=== PATIENT | male | born 1970 | race African-American/Black ===

== ENCOUNTER 2018-06-28 16:22 | Inpatient (IN) | payer MEDICAID ==
[2018-06-28] VITALS (20 sets, daily range): BP systolic 119–161; BP diastolic 66–104
[~2018-06-28] VITALS: Ht 177.8 cm; Wt 122.0 kg
[2018-06-28] MEDS ORDERED: SODIUM CHLORIDE 0.9% 1,000 ML IV ONE (16:51)
[2018-06-28] MEDS ORDERED: HYDRALAZINE 20MG/ML VIAL IV ONE (17:00)
[2018-06-28] MEDS ORDERED: NICARDIPINE 100 MG in SODIUM CHLORIDE 0.9% 60 ML IV STA (17:33)
[2018-06-28] MEDS ORDERED: NICARDIPINE 40MG/200ML PREMIX 200 ML IV SCH (17:45)
[2018-06-28] MEDS ORDERED: NICARDIPINE 40MG/200ML PREMIX 200 ML IV ONE (17:46)
[2018-06-28 17:51] LABS: BASOPHILS % 0.2 % (0.0-2.0); EOSINOPHILS % 0.5 % (0.0-5.0); HEMOGLOBIN. 19.4 g/dL (14.0-18.0); LYMPHOCYTES % 15.3 % (20.0-50.0); MEAN CORPUSCULAR HEMOGLOBIN 27.1 pg (28.0-32.0); MEAN CORPUSCULAR VOLUME 86.2 fL (80.0-94.0); MEAN PLATELET VOLUME 9.2 fl (7.4-10.4); MONOCYTES % 9.6 % (2.0-8.0); NEUTROPHILS % 74.4 % (40.0-76.0); PLATELET 199 x1000/uL (130-400); RED BLOOD CELL COUNT 7.16 mill/uL (4.7-6.1); RED CELL DISTRIBUTION WIDTH 15.8 % (11.6-14.6)
[2018-06-28 17:53] LABS: HEMATOCRIT. 61.7 % (42.0-52.0)
[2018-06-28 17:55] LABS: CHLORIDE 101 mEq/L (98-107); INR 1.3; PARTIAL THROMBOPLASTIN TIME 32.1 sec (23.4-31.0); PROTHROMBIN TIME 12.7 sec (9.1-11.1)
[2018-06-28 18:00] LABS: ETHANOL BLOOD < 10 mg/dL
[2018-06-28] MEDS ORDERED: MANNITOL 20% (20GM/100ML) BAG 500ML PREMIX IV ONE (18:00)
[2018-06-28] MEDS ORDERED: MANNITOL 12.5G (25%) VIAL 50ML IV ONE (18:00)
[2018-06-28] MEDS ORDERED: DEXAMETHASONE 10 MG/ML VIAL IV ONE (18:00)
[2018-06-28] MEDS ORDERED: DEXT 5%/0.45% NACL 1000ML 1,000 ML IV SCH (18:09)
[2018-06-28] MEDS ORDERED: MANNITOL 20% 250 ML IV ONE (18:15)
[2018-06-28 18:36] LABS: CLARITY URINE CLEAR (CLEAR); COLOR URINE YELLOW (YELLOW); KETONES URINE 1+ (NEGATIVE); LEUKOCYTE ESTERASE URINE NEGATIVE (NEGATIVE); NITRITE URINE NEGATIVE (NEGATIVE); OCCULT BLOOD URINE NEGATIVE (NEGATIVE); PROTEIN URINE 1+ (NEGATIVE); SPECIFIC GRAVITY URINE 1.023 (1.005-1.030)
[2018-06-28 18:53] LABS: *AMPHETAMINES SCREEN URINE PRESUMTIVE POSITIVE (NEGATIVE)
[2018-06-28 18:54] LABS: *BARBITURATES SCREEN URINE NEGATIVE (NEGATIVE); *BENZODIAZEPINES SCREEN URINE NEGATIVE (NEGATIVE); *COCAINE SCREEN URINE NEGATIVE (NEGATIVE); CANNABINOID URINE SCREEN NEGATIVE (NEGATIVE); METHADONE URINE SCREEN NEGATIVE (NEGATIVE); OPIATES URINE SCREEN NEGATIVE (NEGATIVE); PHENCYCLIDINE URINE SCREEN NEGATIVE (NEGATIVE)
[2018-06-28] MEDS ORDERED: NICARDIPINE 100 MG in SODIUM CHLORIDE 0.9% 60 ML IV PRN (19:00)
[2018-06-28] MEDS: NICARDIPINE 100 MG in SODIUM CHLORIDE 0.9% 60 ML IV PRN (20:01)
[2018-06-28] MEDS: DEXT 5%/LACTATED RINGERS 1,000 ML IV SCH (20:12)
[2018-06-28] MEDS: DEXAMETHASONE 4MG/ML 1ML VIAL IV SCH (20:27)
[2018-06-28] MEDS: FAMOTIDINE 20MG/2ML VIAL IV SCH (20:27)
[2018-06-28] MEDS: LEVETIRACETAM 500MG in SODIUM CHLORIDE 0.9% 100ML IV SCH (20:28)
[2018-06-28] MEDS: PIPERACILLIN/TAZ 3.375G PREMIX 50 ML IV SCH (22:19)
[2018-06-28 23:15] LABS: BG BASE EXCESS 0.7 mmol/L (-2.0-2.0); BG CARBOXYHEMOGLOBIN 0.6 % (0.5-1.5); BG DEOXYHEMOGLOBIN 4.6 % (0.0-5.0); BG FRACTION INSPIRED OXYGEN 32; BG METHEMOGLOBIN 0.4 % (0.0-1.5); BG OXYGEN SATURATION 95.4 % (92.0-98.5); BG OXYHEMOGLOBIN 94.4 % (94.0-97.0); BG PCO2 43.7 mmHg (35.0-45.0); BG PH 7.392 (7.350-7.450); BG SAMPLE SITE RIGHT BRACHIAL; BG TOTAL HEMOGLOBIN 18.8 g/dL (12.0-18.0); BG VENT MODE NASAL CANNULA
[2018-06-28] MEDS: MANNITOL 20% 100 ML IV SCH (23:15)
[2018-06-29] VITALS (96 sets, daily range): BP systolic 111–175; BP diastolic 54–111
[2018-06-29] MEDS: NICARDIPINE 100 MG in SODIUM CHLORIDE 0.9% 60 ML IV PRN ×3 (02:10→18:00)
[2018-06-29] MEDS: DEXAMETHASONE 4MG/ML 1ML VIAL IV SCH ×4 (02:10→21:06)
[2018-06-29] MEDS: PIPERACILLIN/TAZ 3.375G PREMIX 50 ML IV SCH ×4 (03:14→21:06)
[2018-06-29] MEDS: MANNITOL 20% 100 ML IV SCH ×3 (05:51→17:50)
[2018-06-29 06:42] LABS: HEMATOCRIT 55.7 % (42.0-52.0); HEMOGLOBIN 18.2 g/dL (14.0-18.0); MEAN CORPUSCULAR HEMOGLOBIN 27.4 pg (28.0-32.0); MEAN CORPUSCULAR VOLUME 84.2 fL (80.0-94.0); PLATELET 234 x1000/uL (130-400); RED BLOOD CELL COUNT 6.62 mill/uL (4.7-6.1); RED CELL DISTRIBUTION WIDTH 15.2 % (11.6-14.6)
[2018-06-29 06:45] LABS: CHLORIDE 102 mEq/L (98-107)
[2018-06-29] MEDS ORDERED: LEVETIRACETAM 500MG PREMIX 100 ML IV SCH (09:00)
[2018-06-29] MEDS: LEVETIRACETAM 500MG in SODIUM CHLORIDE 0.9% 100ML IV SCH ×2 (09:04→21:06)
[2018-06-29] MEDS: FAMOTIDINE 20MG/2ML VIAL IV SCH ×2 (09:04→21:06)
[2018-06-29] MEDS: DEXT 5%/LACTATED RINGERS 1,000 ML IV SCH (09:05)
[2018-06-29] MEDS: LABETALOL HCL 20MG/4ML CARPUJECT IV PRN (12:59)
[2018-06-29] MEDS ORDERED: SODIUM CHLORIDE 0.9% 1,000 ML IV SCH (15:45)
[2018-06-29] MEDS ORDERED: METOPROLOL TARTRATE 25MG TABLET JT PRN (17:15)
[2018-06-29] MEDS: MORPHINE SULFATE 4 MG/ML CPJ (NOT FOR IM USE) IV PRN (21:07)
[2018-06-30] VITALS (93 sets, daily range): BP systolic 106–163; BP diastolic 20–100
[2018-06-30] MEDS: NICARDIPINE 100 MG in SODIUM CHLORIDE 0.9% 60 ML IV PRN ×5 (00:36→23:07)
[2018-06-30] MEDS ORDERED: SODIUM CHLORIDE 0.9% 1,000 ML IV SCH (02:00)
[2018-06-30] MEDS: DEXAMETHASONE 4MG/ML 1ML VIAL IV SCH ×4 (03:12→20:36)
[2018-06-30] MEDS: PIPERACILLIN/TAZ 3.375G PREMIX 50 ML IV SCH ×4 (03:12→21:12)
[2018-06-30 05:31] LABS: HEMATOCRIT 54.5 % (42.0-52.0); HEMOGLOBIN 17.3 g/dL (14.0-18.0); MEAN CORPUSCULAR VOLUME 85.1 fL (80.0-94.0); PLATELET 231 x1000/uL (130-400); RED BLOOD CELL COUNT 6.41 mill/uL (4.7-6.1); RED CELL DISTRIBUTION WIDTH 15.3 % (11.6-14.6)
[2018-06-30 06:08] LABS: CHLORIDE 105 mEq/L (98-107)
[2018-06-30] MEDS ORDERED: SODIUM CHLORIDE 3% 500 ML IV SCH (09:00)
[2018-06-30] MEDS: LEVETIRACETAM 500MG in SODIUM CHLORIDE 0.9% 100ML IV SCH ×2 (09:30→20:36)
[2018-06-30] MEDS: FAMOTIDINE 20MG/2ML VIAL IV SCH ×2 (09:30→20:36)
[2018-06-30] MEDS: SODIUM CHLORIDE 3% 500 ML IV SCH ×2 (09:32→21:13)
[2018-06-30] MEDS: MORPHINE SULFATE 4 MG/ML CPJ (NOT FOR IM USE) IV PRN ×2 (20:24→21:10)
[2018-07-01] VITALS (83 sets, daily range): BP systolic 126–171; BP diastolic 18–102
[2018-07-01] MEDS: PIPERACILLIN/TAZ 3.375G PREMIX 50 ML IV SCH ×4 (03:04→21:15)
[2018-07-01] MEDS: DEXAMETHASONE 4MG/ML 1ML VIAL IV SCH ×4 (03:04→20:37)
[2018-07-01] MEDS: MORPHINE SULFATE 4 MG/ML CPJ (NOT FOR IM USE) IV PRN (03:32)
[2018-07-01] MEDS: NICARDIPINE 100 MG in SODIUM CHLORIDE 0.9% 60 ML IV PRN ×3 (06:41→20:57)
[2018-07-01 06:42] LABS: HEMATOCRIT. 54.2 % (42.0-52.0); HEMOGLOBIN. 17.1 g/dL (14.0-18.0); MEAN CORPUSCULAR HEMOGLOBIN 26.8 pg (28.0-32.0); RED BLOOD CELL COUNT 6.38 mill/uL (4.7-6.1); RED CELL DISTRIBUTION WIDTH 15.5 % (11.6-14.6)
[2018-07-01 06:43] LABS: CHLORIDE 110 mEq/L (98-107)
[2018-07-01 06:53] LABS: LDL CHOLESTEROL 76 mg/dL (5-100)
[2018-07-01 06:55] LABS: HDL CHOLESTEROL 38 mg/dL (40-59)
[2018-07-01] MEDS: FAMOTIDINE 20MG/2ML VIAL IV SCH ×2 (09:50→20:37)
[2018-07-01] MEDS: LEVETIRACETAM 500MG in SODIUM CHLORIDE 0.9% 100ML IV SCH ×2 (09:51→20:37)
[2018-07-01 10:34] LABS: PLATELET ESTIMATE NORMAL
[2018-07-01 10:36] LABS: MEAN PLATELET VOLUME 9.3 fl (7.4-10.4)
[2018-07-01 10:37] LABS: PLATELET 227 x1000/uL (130-400)
[2018-07-01] MEDS: LABETALOL HCL 20MG/4ML CARPUJECT IV PRN (10:58)
[2018-07-01] MEDS: SODIUM CHLORIDE 0.9% 1,000 ML IV SCH (13:40)
[2018-07-02] VITALS (89 sets, daily range): BP systolic 116–204; BP diastolic 46–167
[2018-07-02] MEDS: DEXAMETHASONE 4MG/ML 1ML VIAL IV SCH ×4 (03:10→20:44)
[2018-07-02] MEDS: PIPERACILLIN/TAZ 3.375G PREMIX 50 ML IV SCH ×4 (03:10→22:15)
[2018-07-02] MEDS: NICARDIPINE 100 MG in SODIUM CHLORIDE 0.9% 60 ML IV PRN ×3 (03:42→17:40)
[2018-07-02] MEDS: SODIUM CHLORIDE 0.9% 1,000 ML IV SCH ×2 (05:34→22:15)
[2018-07-02] MEDS ORDERED: MORPHINE SULFATE 4 MG/ML CPJ (NOT FOR IM USE) IV PRN (10:00)
[2018-07-02] MEDS: MORPHINE SULFATE 4 MG/ML CPJ (NOT FOR IM USE) IV PRN (10:09)
[2018-07-02] MEDS: LEVETIRACETAM 500MG in SODIUM CHLORIDE 0.9% 100ML IV SCH ×2 (10:13→20:44)
[2018-07-02] MEDS: FAMOTIDINE 20MG/2ML VIAL IV SCH ×2 (10:13→20:44)
[2018-07-02 13:10] LABS: A/G RATIO 0.8 (0.7-1.7); ALBUMIN 3.5 g/dL (2.9-4.4); ALPHA-1-GLOBULIN 0.3 g/dL (0.0-0.4); ALPHA-2-GLOBULIN 0.9 g/dL (0.4-1.0); BETA GLOBULIN 1.4 g/dL (0.7-1.3); GAMMA GLOBULINS 1.9 g/dL (0.4-1.8); GLOBULIN TOTAL 4.5 g/dL (2.2-3.9); M-SPIKE Not Observed g/dL (Not Observed)
[2018-07-03] VITALS (98 sets, daily range): BP systolic 109–172; BP diastolic 58–132
[2018-07-03] MEDS: NICARDIPINE 100 MG in SODIUM CHLORIDE 0.9% 60 ML IV PRN ×2 (00:56→09:28)
[2018-07-03] MEDS: LABETALOL HCL 20MG/4ML CARPUJECT IV PRN (01:57)
[2018-07-03] MEDS: DEXAMETHASONE 4MG/ML 1ML VIAL IV SCH ×4 (03:21→19:56)
[2018-07-03] MEDS: PIPERACILLIN/TAZ 3.375G PREMIX 50 ML IV SCH ×4 (03:21→22:02)
[2018-07-03 05:21] LABS: HEMATOCRIT. 54.8 % (42.0-52.0); HEMOGLOBIN. 17.7 g/dL (14.0-18.0); MEAN CORPUSCULAR HEMOGLOBIN 27.3 pg (28.0-32.0); MEAN CORPUSCULAR VOLUME 84.4 fL (80.0-94.0); MEAN PLATELET VOLUME 9.1 fl (7.4-10.4); PLATELET 230 x1000/uL (130-400); RED CELL DISTRIBUTION WIDTH 15.4 % (11.6-14.6)
[2018-07-03 05:27] LABS: CHLORIDE 102 mEq/L (98-107)
[2018-07-03] MEDS: MORPHINE SULFATE 4 MG/ML CPJ (NOT FOR IM USE) IV PRN (07:03)
[2018-07-03] MEDS ORDERED: MORPHINE SULFATE 4 MG/ML CPJ (NOT FOR IM USE) IV NR (07:15)
[2018-07-03] MEDS ORDERED: HYDROMORPHONE HCL/PF 2MG/ML CPJ IV NR (08:30)
[2018-07-03] MEDS ORDERED: RISPERIDONE 0.5MG TABLET PO SCH (09:00)
[2018-07-03] MEDS: FAMOTIDINE 20MG/2ML VIAL IV SCH ×2 (09:35→19:56)
[2018-07-03] MEDS: LEVETIRACETAM 500MG in SODIUM CHLORIDE 0.9% 100ML IV SCH ×2 (09:36→20:22)
[2018-07-03] MEDS: RISPERIDONE 1MG TABLET PO SCH ×2 (10:30→19:56)
[2018-07-03 14:01] LABS: PLATELET ESTIMATE NORMAL
[2018-07-03] MEDS: HYDROMORPHONE HCL/PF 2MG/ML CPJ IV PRN ×2 (14:04→19:57)
[2018-07-03] MEDS: LOSARTAN POTASSIUM 50 MG TABLET PO SCH (20:23)
[2018-07-03] MEDS: SODIUM CHLORIDE 0.9% 1,000 ML IV SCH (20:23)
[2018-07-04] VITALS (51 sets, daily range): BP systolic 104–158; BP diastolic 70–135
[2018-07-04] MEDS: HYDROMORPHONE HCL/PF 2MG/ML CPJ IV PRN (00:54)
[2018-07-04] MEDS: LABETALOL HCL 20MG/4ML CARPUJECT IV PRN (02:13)
[2018-07-04] MEDS: PIPERACILLIN/TAZ 3.375G PREMIX 50 ML IV SCH ×4 (03:07→21:20)
[2018-07-04] MEDS: DEXAMETHASONE 4MG/ML 1ML VIAL IV SCH ×4 (03:07→21:20)
[2018-07-04 06:05] LABS: HEMATOCRIT. 53.3 % (42.0-52.0); HEMOGLOBIN. 16.8 g/dL (14.0-18.0); MEAN CORPUSCULAR HEMOGLOBIN 26.9 pg (28.0-32.0); MEAN CORPUSCULAR VOLUME 85.1 fL (80.0-94.0); MEAN PLATELET VOLUME 9.3 fl (7.4-10.4); PLATELET 211 x1000/uL (130-400); RED BLOOD CELL COUNT 6.27 mill/uL (4.7-6.1); RED CELL DISTRIBUTION WIDTH 14.7 % (11.6-14.6)
[2018-07-04 07:23] LABS: CHLORIDE 101 mEq/L (98-107)
[2018-07-04] MEDS: LOSARTAN POTASSIUM 50 MG TABLET PO SCH ×2 (08:06→21:21)
[2018-07-04] MEDS: RISPERIDONE 1MG TABLET PO SCH ×2 (08:06→21:21)
[2018-07-04] MEDS: FAMOTIDINE 20MG/2ML VIAL IV SCH ×2 (08:43→21:23)
[2018-07-04] MEDS: LEVETIRACETAM 500MG in SODIUM CHLORIDE 0.9% 100ML IV SCH (09:29)
[2018-07-04 11:04] LABS: PLATELET ESTIMATE NORMAL
[2018-07-04] MEDS: SODIUM CHLORIDE 0.9% 1,000 ML IV SCH (14:08)
[2018-07-04] MEDS: LEVETIRACETAM 500MG TABLET PO SCH (17:24)
[2018-07-05] VITALS: BP 134/88
[2018-07-05] MEDS: DEXAMETHASONE 4MG/ML 1ML VIAL IV SCH ×4 (03:00→21:06)
[2018-07-05 04:00] VITALS: BP 147/90
[2018-07-05] MEDS: LEVETIRACETAM 500MG TABLET PO SCH ×2 (06:34→18:00)
[2018-07-05] MEDS: PIPERACILLIN/TAZ 3.375G PREMIX 50 ML IV SCH ×4 (06:34→23:39)
[2018-07-05 08:00] VITALS: BP 160/103
[2018-07-05] MEDS: LOSARTAN POTASSIUM 50 MG TABLET PO SCH ×2 (08:14→21:06)
[2018-07-05] MEDS: RISPERIDONE 1MG TABLET PO SCH ×2 (08:14→21:06)
[2018-07-05] MEDS: FAMOTIDINE 20MG/2ML VIAL IV SCH ×2 (08:14→21:06)
[2018-07-05 11:01] LABS: HEMATOCRIT. 54.3 % (42.0-52.0); HEMOGLOBIN. 17.2 g/dL (14.0-18.0); MEAN CORPUSCULAR HEMOGLOBIN 26.8 pg (28.0-32.0); MEAN CORPUSCULAR VOLUME 84.8 fL (80.0-94.0); MEAN PLATELET VOLUME 8.8 fl (7.4-10.4); PLATELET 178 x1000/uL (130-400); RED CELL DISTRIBUTION WIDTH 14.8 % (11.6-14.6)
[2018-07-05 11:11] LABS: CHLORIDE 97 mEq/L (98-107)
[2018-07-05 12:00] VITALS: BP 144/92
[2018-07-05 14:16] LABS: PLATELET ESTIMATE NORMAL
[2018-07-05] MEDS: HALOPERIDOL LACTATE 5MG/ML VIAL IM PRN (14:22)
[2018-07-05 16:00] VITALS: BP 140/98
[2018-07-05 20:00] VITALS: BP_SYST 131; BP_SYST 136; BP_DIAS 86; BP_DIAS 97
[2018-07-06] MEDS: DEXAMETHASONE 4MG/ML 1ML VIAL IV SCH ×4 (03:00→21:14)
[2018-07-06 04:00] VITALS: BP 136/88
[2018-07-06] MEDS: LEVETIRACETAM 500MG TABLET PO SCH ×2 (06:27→17:00)
[2018-07-06 08:00] VITALS: BP 162/105
[2018-07-06 09:05] LABS: BASOPHILS % 0.3 % (0.0-2.0); HEMATOCRIT. 57.9 % (42.0-52.0); HEMOGLOBIN. 18.5 g/dL (14.0-18.0); LYMPHOCYTES % 7.3 % (20.0-50.0); MEAN CORPUSCULAR HEMOGLOBIN 27.1 pg (28.0-32.0); MEAN CORPUSCULAR VOLUME 84.8 fL (80.0-94.0); MONOCYTES % 4.8 % (2.0-8.0); NEUTROPHILS % 87.6 % (40.0-76.0); PLATELET 188 x1000/uL (130-400); RED BLOOD CELL COUNT 6.83 mill/uL (4.7-6.1); RED CELL DISTRIBUTION WIDTH 14.9 % (11.6-14.6)
[2018-07-06] MEDS: FAMOTIDINE 20MG/2ML VIAL IV SCH ×2 (09:06→21:14)
[2018-07-06] MEDS: LOSARTAN POTASSIUM 50 MG TABLET PO SCH ×2 (09:07→21:14)
[2018-07-06] MEDS: RISPERIDONE 1MG TABLET PO SCH ×2 (09:07→21:14)
[2018-07-06 09:12] LABS: CHLORIDE 98 mEq/L (98-107)
[2018-07-06 12:00] VITALS: BP 134/82
[2018-07-06] MEDS: HALOPERIDOL LACTATE 5MG/ML VIAL IM PRN (14:42)
[2018-07-06 16:00] VITALS: BP 140/87
[2018-07-06] MEDS ORDERED: LORAZEPAM 2MG/ML CPJ IV PRN (19:30)
[2018-07-06] MEDS ORDERED: FUROSEMIDE 40MG/4ML VIAL IVP NR (19:30)
[2018-07-06 20:00] VITALS: BP 139/84
[2018-07-07] VITALS (8 sets, daily range): BP systolic 94–145; BP diastolic 57–94
[2018-07-07] MEDS: DEXAMETHASONE 4MG/ML 1ML VIAL IV SCH ×4 (03:39→21:23)
[2018-07-07] MEDS: LEVETIRACETAM 500MG TABLET PO SCH ×2 (06:11→18:46)
[2018-07-07] MEDS: RISPERIDONE 1MG TABLET PO SCH ×2 (09:23→21:00)
[2018-07-07] MEDS: LOSARTAN POTASSIUM 50 MG TABLET PO SCH ×2 (09:23→21:00)
[2018-07-07] MEDS: FAMOTIDINE 20MG/2ML VIAL IV SCH (09:27)
[2018-07-07] MEDS ORDERED: MAGNESIUM HYDROXIDE 400MG/5ML 30ML UDC PO NR (20:00)
[2018-07-07] MEDS ORDERED: FAMOTIDINE 20MG TABLET PO SCH (21:00)
[2018-07-08 04:00] VITALS: BP 139/54
[2018-07-08] MEDS: DEXAMETHASONE 4MG/ML 1ML VIAL IV SCH (04:03)
[2018-07-08] MEDS: LEVETIRACETAM 500MG TABLET PO SCH (06:00)
[2018-07-08 08:00] VITALS: BP 124/91
== END 2018-07-08 09:15 | DRG 44 ==
LOC: ER 16:22 → MICUNO 18:07 → EDBEDREQ 18:16 → ENRESERV 18:19 → 5WST 07-04 17:51
PROVIDERS: ADMIT Ophthalmology; ATTEND Ophthalmology
PROC: 4A00X4Z Measurement of Central Nervous Electrical Activity, External Approach (ICD-10-PCS; principal; 2018-06-29)
DX: I61.1 Nontraumatic intracerebral hemorrhage in hemisphere, cortical (principal); G93.41 Metabolic encephalopathy; D75.1 Secondary polycythemia; E66.01 Morbid (severe) obesity due to excess calories; G81.91 Hemiplegia, unspecified affecting right dominant side; G90.8 Other disorders of autonomic nervous system; R47.01 Aphasia; I10 Essential (primary) hypertension; I87.2 Venous insufficiency (chronic) (peripheral); E86.0 Dehydration; F15.10 Other stimulant abuse, uncomplicated; D72.829 Elevated white blood cell count, unspecified; X58.XXXA Exposure to other specified factors, initial encounter; W19.XXXA Unspecified fall, initial encounter; Y93.89 Activity, other specified; Z78.1 Physical restraint status; Y92.89 Other specified places as the place of occurrence of the external cause; Z68.38 Body mass index [BMI] 38.0-38.9, adult; Y99.8 Other external cause status
CPT/HCPCS: 36415; 36600; 70496; 71045; 72170; 73590; 73610; 80048; 80061; 80305; 82375; 82668; 82805; 82962; 83880; 84155; 84165; 84295; 84484; 85027; 92610; 93005; 93970; 96374; 96375; 97116; 97162; 97166; 97530; 97535; 99291; G0482; J0360; J1100; J1170; J1630; J1940; J1953; J2060; J2270; J2543; J3490; J7030; J7050; A4315

== ENCOUNTER 2018-07-08 13:15 | Inpatient (IN) | payer MEDICAID ==
[~2018-07-08] VITALS: Ht 185.4 cm; Wt 108.9 kg
[2018-07-08] MEDS ORDERED: LORAZEPAM 1MG TABLET PO ONE (14:00)
[2018-07-08] MEDS ORDERED: QUETIAPINE FUMARATE 100MG TABLET PO ONE (15:30)
[2018-07-08 18:45] LABS: BASOPHILS % 0.3 % (0.0-2.0); EOSINOPHILS % 0.7 % (0.0-5.0); HEMATOCRIT. 59.6 % (42.0-52.0); LYMPHOCYTES % 10.5 % (20.0-50.0); MEAN CORPUSCULAR HEMOGLOBIN 26.8 pg (28.0-32.0); MEAN CORPUSCULAR VOLUME 83.9 fL (80.0-94.0); MEAN PLATELET VOLUME 8.9 fl (7.4-10.4); NEUTROPHILS % 77.5 % (40.0-76.0); PLATELET 201 x1000/uL (130-400); RED BLOOD CELL COUNT 7.11 mill/uL (4.7-6.1); RED CELL DISTRIBUTION WIDTH 14.9 % (11.6-14.6)
[2018-07-08 18:48] LABS: CHLORIDE 98 mEq/L (98-107)
[2018-07-08] MEDS ORDERED: LEVETIRACETAM 500MG PREMIX 100 ML IV ONE (19:30)
[2018-07-08 19:45] LABS: INR 1.3; PARTIAL THROMBOPLASTIN TIME 26.8 sec (23.4-31.0); PROTHROMBIN TIME 13.1 sec (9.1-11.1)
[2018-07-08] MEDS ORDERED: MORPHINE SULFATE 4 MG/ML CPJ (NOT FOR IM USE) IV PRN (20:30)
[2018-07-08] MEDS ORDERED: NICARDIPINE 100 MG in SODIUM CHLORIDE 0.9% 60 ML IV PRN ×2 (20:30→23:15)
[2018-07-08] MEDS ORDERED: DEXAMETHASONE 10 MG/ML VIAL IV ONE (20:30)
[2018-07-08 23:00] VITALS: BP_SYST 116; BP_SYST 127; BP_DIAS 75; BP_DIAS 92
[2018-07-08 23:15] VITALS: BP 110/66
[2018-07-08] MEDS ORDERED: ACETAMINOPHEN 650MG SUPP PR PRN (23:15)
[2018-07-08] MEDS ORDERED: HALOPERIDOL 1MG TABLET PO PRN (23:15)
[2018-07-08] MEDS: MANNITOL 20% (20GM/100ML) BAG 500ML PREMIX IV NR ×2 (23:29→23:44)
[2018-07-08 23:30] VITALS: BP 109/71
[2018-07-08] MEDS ORDERED: DEXT 5%/LACTATED RINGERS 1,000 ML IV SCH (23:30)
[2018-07-08 23:45] VITALS: BP 106/81
[2018-07-09] VITALS (35 sets, daily range): BP systolic 94–137; BP diastolic 54–92
[2018-07-09] MEDS ORDERED: CEFTRIAXONE 1 G PREMIX 50 ML IV SCH (01:00)
[2018-07-09] MEDS ORDERED: DEXT 5%/0.45% NACL KCL 20MEQ/L 1,000 ML IV SCH (01:00)
[2018-07-09] MEDS: DEXAMETHASONE 4MG/ML 1ML VIAL IV SCH ×3 (04:01→21:04)
[2018-07-09] MEDS: CEFTRIAXONE 1 G PREMIX 50 ML IV SCH (04:02)
[2018-07-09] MEDS ORDERED: DEXT 5%/LACTATED RINGERS 1,000 ML IV SCH (04:30)
[2018-07-09] MEDS ORDERED: LEVETIRACETAM 500MG PREMIX 100 ML IV SCH (09:00)
[2018-07-09] MEDS: LEVETIRACETAM 500MG in SODIUM CHLORIDE 0.9% 100ML IV SCH ×2 (09:25→22:23)
[2018-07-09] MEDS: FAMOTIDINE 20MG/2ML VIAL IV SCH ×2 (09:26→21:03)
[2018-07-09] MEDS: METOPROLOL TARTRATE 50MG TABLET PO SCH ×2 (10:45→21:06)
[2018-07-09] MEDS: LOSARTAN POTASSIUM 50 MG TABLET PO SCH (10:46)
[2018-07-09 12:01] LABS: BASOPHILS % 0.1 % (0.0-2.0); EOSINOPHILS % 0.1 % (0.0-5.0); HEMOGLOBIN. 20.8 g/dL (14.0-18.0); LYMPHOCYTES % 7.5 % (20.0-50.0); MEAN CORPUSCULAR HEMOGLOBIN 26.9 pg (28.0-32.0); MEAN PLATELET VOLUME 9.1 fl (7.4-10.4); MONOCYTES % 4.1 % (2.0-8.0); NEUTROPHILS % 88.2 % (40.0-76.0); PLATELET 221 x1000/uL (130-400); RED BLOOD CELL COUNT 7.75 mill/uL (4.7-6.1); RED CELL DISTRIBUTION WIDTH 15.1 % (11.6-14.6)
[2018-07-09 12:05] LABS: CHLORIDE 97 mEq/L (98-107)
[2018-07-09 12:12] LABS: HEMATOCRIT. 65.9 % (42.0-52.0)
[2018-07-09] MEDS ORDERED: HALOPERIDOL 5MG TABLET PO PRN ×2 (15:30→23:15)
[2018-07-09] MEDS ORDERED: HALOPERIDOL LACTATE 5MG/ML VIAL IM PRN (19:45)
[2018-07-09] MEDS: RISPERIDONE 1MG TABLET PO SCH (21:06)
[2018-07-10] VITALS (14 sets, daily range): BP systolic 103–144; BP diastolic 56–91
[2018-07-10] MEDS: CEFTRIAXONE 1 G PREMIX 50 ML IV SCH (06:32)
[2018-07-10] MEDS: METOPROLOL TARTRATE 50MG TABLET PO SCH ×2 (09:00→20:47)
[2018-07-10] MEDS: RISPERIDONE 1MG TABLET PO SCH ×2 (10:41→20:47)
[2018-07-10] MEDS: FAMOTIDINE 20MG/2ML VIAL IV SCH ×2 (10:41→20:46)
[2018-07-10] MEDS: DEXAMETHASONE 4MG/ML 1ML VIAL IV SCH ×2 (10:42→20:46)
[2018-07-10] MEDS: LEVETIRACETAM 500MG in SODIUM CHLORIDE 0.9% 100ML IV SCH ×2 (11:08→22:41)
[2018-07-10] MEDS: LOSARTAN POTASSIUM 50 MG TABLET PO SCH (11:17)
[2018-07-10 18:57] LABS: *BARBITURATES SCREEN URINE NEGATIVE (NEGATIVE); *BENZODIAZEPINES SCREEN URINE NEGATIVE (NEGATIVE); CANNABINOID URINE SCREEN NEGATIVE (NEGATIVE)
[2018-07-10 18:58] LABS: *AMPHETAMINES SCREEN URINE NEGATIVE (NEGATIVE); *COCAINE SCREEN URINE NEGATIVE (NEGATIVE); METHADONE URINE SCREEN NEGATIVE (NEGATIVE); OPIATES URINE SCREEN NEGATIVE (NEGATIVE); PHENCYCLIDINE URINE SCREEN NEGATIVE (NEGATIVE)
[2018-07-10 20:30] LABS: BASOPHILS % 0.1 % (0.0-2.0); EOSINOPHILS % 0.5 % (0.0-5.0); HEMATOCRIT. 52.5 % (42.0-52.0); HEMOGLOBIN. 16.6 g/dL (14.0-18.0); LYMPHOCYTES % 8.7 % (20.0-50.0); MEAN CORPUSCULAR HEMOGLOBIN 26.7 pg (28.0-32.0); MEAN CORPUSCULAR VOLUME 84.6 fL (80.0-94.0); MEAN PLATELET VOLUME 9.7 fl (7.4-10.4); MONOCYTES % 7.6 % (2.0-8.0); NEUTROPHILS % 83.1 % (40.0-76.0); PLATELET 187 x1000/uL (130-400); RED BLOOD CELL COUNT 6.21 mill/uL (4.7-6.1); RED CELL DISTRIBUTION WIDTH 14.8 % (11.6-14.6)
[2018-07-11] VITALS: BP 128/85
[2018-07-11 04:00] VITALS: BP 118/81
[2018-07-11] MEDS: CEFTRIAXONE 1 G PREMIX 50 ML IV SCH (05:10)
[2018-07-11] MEDS: SODIUM CHLORIDE 0.9% 1,000 ML IV SCH (05:11)
[2018-07-11 08:00] VITALS: BP 135/82
[2018-07-11] MEDS: LEVETIRACETAM 500MG in SODIUM CHLORIDE 0.9% 100ML IV SCH ×2 (09:16→21:10)
[2018-07-11] MEDS: FAMOTIDINE 20MG/2ML VIAL IV SCH ×2 (09:17→21:08)
[2018-07-11] MEDS: METOPROLOL TARTRATE 50MG TABLET PO SCH ×2 (09:17→21:09)
[2018-07-11] MEDS: LOSARTAN POTASSIUM 50 MG TABLET PO SCH (09:17)
[2018-07-11] MEDS: RISPERIDONE 1MG TABLET PO SCH ×2 (09:17→21:00)
[2018-07-11] MEDS: DEXAMETHASONE 4MG/ML 1ML VIAL IV SCH ×2 (09:17→21:08)
[2018-07-11 11:01] LABS: HEMATOCRIT. 50.6 % (42.0-52.0); MEAN CORPUSCULAR HEMOGLOBIN 26.7 pg (28.0-32.0); MEAN CORPUSCULAR VOLUME 84.6 fL (80.0-94.0); PLATELET 188 x1000/uL (130-400); RED BLOOD CELL COUNT 5.98 mill/uL (4.7-6.1); RED CELL DISTRIBUTION WIDTH 14.9 % (11.6-14.6)
[2018-07-11 11:29] LABS: CHLORIDE 104 mEq/L (98-107)
[2018-07-11 13:45] LABS: PLATELET ESTIMATE NORMAL
[2018-07-11 20:00] VITALS: BP 137/76
[2018-07-11 23:55] VITALS: BP 121/75
[2018-07-12 04:00] VITALS: BP 142/80
[2018-07-12] MEDS: CEFTRIAXONE 1 G PREMIX 50 ML IV SCH (04:43)
[2018-07-12 08:00] VITALS: BP 133/67
[2018-07-12] MEDS: METOPROLOL TARTRATE 50MG TABLET PO SCH ×2 (08:59→21:00)
[2018-07-12] MEDS: LOSARTAN POTASSIUM 50 MG TABLET PO SCH (08:59)
[2018-07-12] MEDS: RISPERIDONE 1MG TABLET PO SCH ×2 (08:59→22:39)
[2018-07-12] MEDS: DEXAMETHASONE 4MG/ML 1ML VIAL IV SCH ×2 (08:59→21:00)
[2018-07-12] MEDS: FAMOTIDINE 20MG/2ML VIAL IV SCH ×2 (09:00→21:00)
[2018-07-12] MEDS: LEVETIRACETAM 500MG in SODIUM CHLORIDE 0.9% 100ML IV SCH ×2 (09:00→21:00)
[2018-07-12 11:35] VITALS: BP 139/71
[2018-07-12 20:00] VITALS: BP 108/58
[2018-07-13 04:00] VITALS: BP 114/80
[2018-07-13] MEDS: CEFTRIAXONE 1 G PREMIX 50 ML IV SCH (05:00)
[2018-07-13 06:36] LABS: HEMATOCRIT 51.5 % (42.0-52.0); HEMOGLOBIN 16.5 g/dL (14.0-18.0); MEAN CORPUSCULAR HEMOGLOBIN 26.9 pg (28.0-32.0); MEAN CORPUSCULAR VOLUME 84.2 fL (80.0-94.0); PLATELET 206 x1000/uL (130-400); RED BLOOD CELL COUNT 6.12 mill/uL (4.7-6.1); RED CELL DISTRIBUTION WIDTH 15.4 % (11.6-14.6)
[2018-07-13 07:44] LABS: CHLORIDE 106 mEq/L (98-107)
[2018-07-13 08:00] VITALS: BP 117/78
[2018-07-13] MEDS: DEXAMETHASONE 4MG/ML 1ML VIAL IV SCH ×2 (08:50→21:00)
[2018-07-13] MEDS: LEVETIRACETAM 500MG in SODIUM CHLORIDE 0.9% 100ML IV SCH ×2 (08:50→21:00)
[2018-07-13] MEDS: LOSARTAN POTASSIUM 50 MG TABLET PO SCH (08:59)
[2018-07-13] MEDS: FAMOTIDINE 20MG/2ML VIAL IV SCH ×2 (09:00→21:00)
[2018-07-13] MEDS: METOPROLOL TARTRATE 50MG TABLET PO SCH ×2 (09:00→21:00)
[2018-07-13] MEDS: RISPERIDONE 1MG TABLET PO SCH ×2 (09:00→21:02)
[2018-07-13 12:00] VITALS: BP 112/62
[2018-07-13 15:34] VITALS: BP 110/55
[2018-07-13 20:00] VITALS: BP 105/69
[2018-07-14 04:00] VITALS: BP 114/76
[2018-07-14] MEDS: CEFTRIAXONE 1 G PREMIX 50 ML IV SCH (05:00)
[2018-07-14 06:23] LABS: HEMATOCRIT 49.7 % (42.0-52.0); HEMOGLOBIN 15.7 g/dL (14.0-18.0); MEAN CORPUSCULAR HEMOGLOBIN 26.8 pg (28.0-32.0); MEAN CORPUSCULAR VOLUME 84.5 fL (80.0-94.0); PLATELET 204 x1000/uL (130-400); RED BLOOD CELL COUNT 5.88 mill/uL (4.7-6.1); RED CELL DISTRIBUTION WIDTH 15.1 % (11.6-14.6)
[2018-07-14 08:00] VITALS: BP 122/76
[2018-07-14] MEDS: RISPERIDONE 1MG TABLET PO SCH ×2 (09:08→20:23)
[2018-07-14] MEDS: LEVETIRACETAM 500MG TABLET PO SCH ×2 (09:08→20:22)
[2018-07-14] MEDS: LOSARTAN POTASSIUM 50 MG TABLET PO SCH (09:08)
[2018-07-14] MEDS: METOPROLOL TARTRATE 50MG TABLET PO SCH ×2 (09:08→20:22)
[2018-07-14] MEDS: FAMOTIDINE 20MG/2ML VIAL IV SCH ×2 (09:11→20:22)
[2018-07-14 12:00] VITALS: BP 134/77
[2018-07-14 16:00] VITALS: BP 132/64
[2018-07-14 20:00] VITALS: BP 102/62
[2018-07-14] MEDS: SODIUM CHLORIDE 0.9% 1,000 ML IV SCH (20:29)
[2018-07-15] VITALS: BP 121/77
[2018-07-15 04:00] VITALS: BP 102/68
[2018-07-15] MEDS: CEFTRIAXONE 1 G PREMIX 50 ML IV SCH (04:10)
[2018-07-15 07:51] LABS: HEMATOCRIT 49.9 % (42.0-52.0); HEMOGLOBIN 15.8 g/dL (14.0-18.0); MEAN CORPUSCULAR HEMOGLOBIN 26.9 pg (28.0-32.0); MEAN CORPUSCULAR VOLUME 84.7 fL (80.0-94.0); PLATELET 197 x1000/uL (130-400); RED BLOOD CELL COUNT 5.89 mill/uL (4.7-6.1); RED CELL DISTRIBUTION WIDTH 15.2 % (11.6-14.6)
[2018-07-15 07:52] LABS: CHLORIDE 106 mEq/L (98-107)
[2018-07-15 08:00] VITALS: BP 151/81
[2018-07-15] MEDS ORDERED: ONDANSETRON HCL 4MG/2ML INJ IV PRN (09:15)
[2018-07-15] MEDS: RISPERIDONE 1MG TABLET PO SCH ×2 (10:20→20:53)
[2018-07-15] MEDS: FAMOTIDINE 20MG/2ML VIAL IV SCH ×2 (10:20→20:53)
[2018-07-15] MEDS: LOSARTAN POTASSIUM 50 MG TABLET PO SCH (10:20)
[2018-07-15] MEDS: LEVETIRACETAM 500MG TABLET PO SCH ×2 (10:20→20:53)
[2018-07-15] MEDS: METOPROLOL TARTRATE 50MG TABLET PO SCH ×2 (10:20→20:53)
[2018-07-15 12:00] VITALS: BP 119/80
[2018-07-15 16:00] VITALS: BP 172/130
[2018-07-15 20:00] VITALS: BP 110/65
[2018-07-16] VITALS: BP 133/82
[2018-07-16 04:00] VITALS: BP 94/57
[2018-07-16] MEDS ORDERED: CEFTRIAXONE 1 G PREMIX 50 ML IV SCH (05:00)
[2018-07-16 06:25] LABS: HEMATOCRIT 47.9 % (42.0-52.0); HEMOGLOBIN 15.4 g/dL (14.0-18.0); MEAN CORPUSCULAR HEMOGLOBIN 27.2 pg (28.0-32.0); MEAN CORPUSCULAR VOLUME 84.7 fL (80.0-94.0); PLATELET 176 x1000/uL (130-400); RED BLOOD CELL COUNT 5.66 mill/uL (4.7-6.1); RED CELL DISTRIBUTION WIDTH 15.6 % (11.6-14.6)
[2018-07-16 07:51] LABS: CHLORIDE 105 mEq/L (98-107)
[2018-07-16 08:00] VITALS: BP 126/84
[2018-07-16] MEDS: FAMOTIDINE 20MG/2ML VIAL IV SCH ×2 (08:54→22:22)
[2018-07-16] MEDS: LEVETIRACETAM 500MG TABLET PO SCH ×2 (08:54→22:21)
[2018-07-16] MEDS: METOPROLOL TARTRATE 50MG TABLET PO SCH ×2 (08:54→22:21)
[2018-07-16] MEDS: LOSARTAN POTASSIUM 50 MG TABLET PO SCH (08:55)
[2018-07-16] MEDS: RISPERIDONE 1MG TABLET PO SCH ×2 (08:55→21:00)
[2018-07-16 11:44] VITALS: BP 110/65
[2018-07-16 15:42] VITALS: BP 117/69
[2018-07-16 20:00] VITALS: BP 139/89
[2018-07-17 04:00] VITALS: BP 138/69
[2018-07-17 08:00] VITALS: BP 154/88
[2018-07-17] MEDS: FAMOTIDINE 20MG/2ML VIAL IV SCH ×2 (08:29→08:42)
[2018-07-17] MEDS: LOSARTAN POTASSIUM 50 MG TABLET PO SCH (08:29)
[2018-07-17] MEDS: LEVETIRACETAM 500MG TABLET PO SCH ×2 (08:29→21:24)
[2018-07-17] MEDS: RISPERIDONE 1MG TABLET PO SCH ×2 (08:30→21:24)
[2018-07-17] MEDS: METOPROLOL TARTRATE 50MG TABLET PO SCH ×2 (08:30→21:24)
[2018-07-17 12:02] VITALS: BP 124/84
[2018-07-17 15:59] VITALS: BP 142/90
[2018-07-17 20:00] VITALS: BP 127/78
[2018-07-17] MEDS: FAMOTIDINE 20MG TABLET PO SCH (21:24)
[2018-07-18] VITALS: BP 124/61
[2018-07-18 04:00] VITALS: BP 128/81
[2018-07-18 08:00] VITALS: BP 129/88
[2018-07-18] MEDS: RISPERIDONE 1MG TABLET PO SCH ×2 (08:57→21:09)
[2018-07-18] MEDS: METOPROLOL TARTRATE 50MG TABLET PO SCH ×2 (08:57→21:09)
[2018-07-18] MEDS: LOSARTAN POTASSIUM 50 MG TABLET PO SCH (08:57)
[2018-07-18] MEDS: FAMOTIDINE 20MG TABLET PO SCH ×2 (08:57→21:09)
[2018-07-18] MEDS: LEVETIRACETAM 500MG TABLET PO SCH ×2 (08:57→21:09)
[2018-07-18 12:00] VITALS: BP 121/78
[2018-07-18 16:00] VITALS: BP 103/67
[2018-07-18] MEDS: DEXAMETHASONE 4MG/ML 1ML VIAL IV SCH (17:31)
[2018-07-18 20:00] VITALS: BP 162/90
[2018-07-19] VITALS: BP 112/82
[2018-07-19] MEDS: DEXAMETHASONE 4MG/ML 1ML VIAL IV SCH ×3 (00:18→12:12)
[2018-07-19 04:00] VITALS: BP 138/100
[2018-07-19 07:31] LABS: HEMATOCRIT 53.1 % (42.0-52.0); HEMOGLOBIN 16.9 g/dL (14.0-18.0); MEAN CORPUSCULAR HEMOGLOBIN 27.2 pg (28.0-32.0); MEAN CORPUSCULAR VOLUME 85.2 fL (80.0-94.0); PLATELET 167 x1000/uL (130-400); RED BLOOD CELL COUNT 6.23 mill/uL (4.7-6.1); RED CELL DISTRIBUTION WIDTH 15.8 % (11.6-14.6)
[2018-07-19 08:00] VITALS: BP 159/89
[2018-07-19 08:53] LABS: CHLORIDE 105 mEq/L (98-107)
[2018-07-19] MEDS: LEVETIRACETAM 500MG TABLET PO SCH (09:59)
[2018-07-19] MEDS: LOSARTAN POTASSIUM 50 MG TABLET PO SCH (09:59)
[2018-07-19] MEDS: FAMOTIDINE 20MG TABLET PO SCH (09:59)
[2018-07-19] MEDS: RISPERIDONE 1MG TABLET PO SCH (09:59)
[2018-07-19] MEDS: METOPROLOL TARTRATE 50MG TABLET PO SCH (09:59)
[2018-07-19 12:00] VITALS: BP 131/81
[2018-07-19 13:30] VITALS: BP 16/131
== END 2018-07-19 14:43 | disposition home health service (06) | DRG 44 ==
LOC: ER 13:34 → CVICU 17:51 → EDBEDREQTM 18:22 → EDBEDREQ 18:22 → EDBEDREQSVC 19:29 → EDBEDREQ 19:30 → ENRESERV 19:44 → EDBEDREQTM 19:54 → EDBEDREQ 19:54 → MICUSO 22:30 → 6EST 07-09 14:35
PROVIDERS: ADMIT Internal Medicine Critical Care Medicine; ATTEND Ophthalmology
DX: I61.0 Nontraumatic intracerebral hemorrhage in hemisphere, subcortical (principal); G93.40 Encephalopathy, unspecified; G93.6 Cerebral edema; D75.1 Secondary polycythemia; E66.01 Morbid (severe) obesity due to excess calories; E87.1 Hypo-osmolality and hyponatremia; Z78.1 Physical restraint status; F19.10 Other psychoactive substance abuse, uncomplicated; I10 Essential (primary) hypertension; D72.829 Elevated white blood cell count, unspecified; Z86.73 Personal history of transient ischemic attack (TIA), and cerebral infarction without residual deficits; Z68.31 Body mass index [BMI] 31.0-31.9, adult
CPT/HCPCS: 36415; 71045; 80048; 80305; 82962; 84484; 85007; 85027; 86850; 86900; 92523; 93005; 93970; 96374; 96375; 97116; 97162; 97166; 97530; 97535; 99285; C1893; J0696; J1100; J1630; J1953; J2405; J3490; J7030; J7050; J7121; A4315